=== PATIENT | female | born 1945 | race Caucasian/White ===

== ENCOUNTER → 2017-01-29 | Day surgery (SDC) | payer OTHER ==
[~2017-01-29] VITALS: Ht 154.9 cm; Wt 82.6 kg
[~2017-01-29] MED LIST: ASPI81CH59 PO; ATOR80TA PO; CHOL1TAB42 PO; METF-312 PO; MIDAZOLAM HCL 1MG/1ML-2 ML VIAL ONE; OME20T PO; SODIUM CHLORIDE 0.9% 1,000 ML IV SCH; fentaNYL CITRATE 100 MCG/2 ML VL ONE
== END | disposition home or self-care (01) ==
LOC: CATH 09:55
PROVIDERS: ATTEND Internal Medicine Cardiovascular Disease
DX: R94.39 Abnormal result of other cardiovascular function study (principal)
CPT/HCPCS: 93458; C1760; C1894; J2250; J3010; 99152